=== PATIENT | male | born 1970 | race Caucasian/White ===

== ENCOUNTER 2023-01-20 10:07 | Emergency (ER) | payer OTHER ==
[~2023-01-20] VITALS: Ht 170.2 cm; Wt 110.6 kg
[2023-01-20] MEDS ORDERED: SIMV20TA22 PO (10:43)
[2023-01-20 12:55] LABS: BASO # 0.1 10^3/uL (0.0-0.2); BASO % 0.7 % (0.0-1.0); EOS # 0.2 10^3/uL (0.0-0.5); EOS % 1.7 % (0.0-3.0); HEMATOCRIT 43.1 % (42.0-52.0); HEMOGLOBIN 13.6 g/dl (13.5-17.5); LYMPH # 1.6 10^3/uL (1.5-5.0); LYMPH % 16.3 % (24.0-44.0); MEAN CORPUSCULAR HEMOGLOBIN 28.9 pg (27.0-33.0); MEAN CORPUSCULAR HGB CONC 31.6 g/dl (32.0-36.5); MEAN CORPUSCULAR VOLUME 91.7 fl (80.0-96.0); MONO # 0.6 10^3/uL (0.0-0.8); MONO % 5.7 % (2.0-8.0); NEUTROPHILS # 7.3 10^3/uL (1.5-8.5); NEUTROPHILS % 75.2 % (36.0-66.0); PLATELET COUNT, AUTOMATED 336 10^3/uL (150-450); WHITE BLOOD COUNT 9.8 10^3/uL (4.0-10.0)
[2023-01-20 13:03] LABS: ERYTHROCYTE SEDIMENTATION RATE 45 mm/hr (0-20)
[2023-01-20 14:12] LABS: HEMOGLOBIN A1c 5.8 % (4.0-6.0)
[2023-01-20] MEDS ORDERED: VANCOMYCIN HCL 2,000 MG in IV FLUID PLACE HOLDER 1 EA IV ONE (14:15)
[2023-01-20] MEDS ORDERED: VANCOMYCIN HCL 1,000 MG, VIAL MATE ADAPTER 1 EACH in NS 250 ML IV ONE ×2 (15:00→16:00)
[2023-01-20] MEDS ORDERED: BACT800T5 PO (18:04)
[2023-01-20 18:27] VITALS: BP 155/85
[2023-01-22] MEDS ORDERED: AMOX875T PO (08:39)
== END 2023-01-20 18:29 | disposition home or self-care (01) ==
LOC: M ED 10:07
DX: L03.115 Cellulitis of right lower limb (principal); L97.519 Non-pressure chronic ulcer of other part of right foot with unspecified severity; E78.5 Hyperlipidemia, unspecified; G47.33 Obstructive sleep apnea (adult) (pediatric); Z79.02 Long term (current) use of antithrombotics/antiplatelets; Z79.899 Other long term (current) drug therapy